=== PATIENT | male | born 1995 | race African-American/Black ===

== ENCOUNTER 2018-07-04 17:24 | Emergency (ER) | payer OTHER | END 2018-07-04 20:45 | disposition home or self-care (01) | LOC: M ED 17:24 | DX: S83.421A Sprain of lateral collateral ligament of right knee, initial encounter (principal); X58.XXXA Exposure to other specified factors, initial encounter; Y92.89 Other specified places as the place of occurrence of the external cause | CPT/HCPCS: 73564 ==

== ENCOUNTER 2018-12-24 09:21 | Emergency (ER) | payer OTHER ==
[~2018-12-24] VITALS: Ht 177.8 cm; Wt 78.4 kg
[2018-12-24 09:21] VITALS: BP 138/80
[~2018-12-24 09:21] MED LIST: ACET650S3 PR; IBUP-1022 PO; IBUP-1114 PO
[2018-12-24] MEDS ORDERED: DOXY100C37 PO (09:49)
[2018-12-24] MEDS ORDERED: DOXYCYCLINE HYCLATE 100 MG TAB PO ONE (10:00)
== END 2018-12-24 09:58 | disposition home or self-care (01) ==
LOC: M ED 09:21
DX: J20.9 Acute bronchitis, unspecified (principal); R07.89 Other chest pain

== ENCOUNTER → 2019-08-29 | Outpatient (REF) | payer OTHER ==
[~2019-08-29] MED LIST changes: +DOXY100C37 PO
[2019-08-29 13:16] LABS: SEMEN APPEARANCE OPAQUE (OPAQUE); SEMEN VISCOSITY LIQUID (LIQUID); SPERM CONCENTRATION 48.4 M/ml (>=15.0); WBC CONCENTRATION <=1 M/ml (<=1 M/ml)
== END ==
LOC: M LAB REF 12:47
PROVIDERS: ATTEND Obstetrics & Gynecology
DX: N46.8 Other male infertility (principal)